=== PATIENT | female | born 1960 | race Caucasian/White ===

== ENCOUNTER 2017-07-14 21:39 | Inpatient (IN) | payer BC, MEDICAID ==
[~2017-07-14] VITALS: Ht 162.6 cm; Wt 103.0 kg
[~2017-07-14 21:39] MED LIST: ACET250T26 PO; ALBU18HF2 INH; DEXA1TAB PO; FURO20TA4 PO; LEVE1000 PO; LEVO100T9 PO; LEVO500T89; LORA1TAB PO; LOVA40TA73 PO; OMEP40CA34 PO; ONDA8TAB6 PO
[2017-07-14] MEDS ORDERED: SODIUM CHLORIDE 0.9% 1,000 ML IV ONE (23:03)
[2017-07-14 23:18] LABS: BG CARBOXYHEMOGLOBIN 0.6 % (0.5-1.5); BG DEOXYHEMOGLOBIN 3.1 % (0.0-5.0); BG FRACTION INSPIRED OXYGEN 21; BG HCO3 ACT 21.1 mmol/L (22.0-26.0); BG METHEMOGLOBIN 0.1 % (0.0-1.5); BG OXYGEN SATURATION 96.9 % (92.0-98.5); BG OXYHEMOGLOBIN 96.2 % (94.0-97.0); BG PCO2 31.7 mmHg (35.0-45.0); BG PH 7.441 (7.350-7.450); BG PO2 89.5 mmHg (75.0-100.0); BG SAMPLE SITE RIGHT RADIAL; BG TOTAL HEMOGLOBIN 15.3 g/dL (12.0-18.0); BG VENT MODE ROOM AIR
[2017-07-14 23:27] LABS: HEMATOCRIT. 42.8 % (36.0-48.0); HEMOGLOBIN. 14.4 g/dL (12.0-16.0); MEAN CORPUSCULAR HEMOGLOBIN 31.3 pg (28.0-32.0); MEAN CORPUSCULAR VOLUME 92.8 fL (81.0-99.0); MEAN PLATELET VOLUME 7.9 fl (7.4-10.4); PLATELET 131 x1000/uL (130-400); RED BLOOD CELL COUNT 4.61 mill/uL (4.2-5.4); RED CELL DISTRIBUTION WIDTH 20.4 % (11.6-14.6)
[2017-07-14 23:31] LABS: CHLORIDE 101 mEq/L (98-107)
[2017-07-14 23:34] LABS: PROTHROMBIN TIME 10.8 sec (9.4-11.6)
[2017-07-14 23:43] LABS: CARBON DIOXIDE 24 mEq/L (21-32)
[2017-07-14 23:56] LABS: PLATELET ESTIMATE NORMAL
[2017-07-15] VITALS (9 sets, daily range): BP systolic 125–154; BP diastolic 73–95
[2017-07-15] MEDS ORDERED: SODIUM CHLORIDE 0.9% 1,000 ML IV ONE (00:06)
[2017-07-15] MEDS ORDERED: PIPERACILLIN/TAZOBACTAM 3.375GM/50ML PREMIX IV NR (00:15)
[2017-07-15] MEDS ORDERED: VANCOMYCIN 1 G PREMIX 200 ML IV SCH (00:15)
[2017-07-15 00:40] LABS: CLARITY URINE CLEAR (CLEAR); COLOR URINE YELLOW (YELLOW); GLUCOSE URINE NEGATIVE (NEGATIVE); KETONES URINE NEGATIVE (NEGATIVE); LEUKOCYTE ESTERASE URINE NEGATIVE (NEGATIVE); NITRITE URINE NEGATIVE (NEGATIVE); OCCULT BLOOD URINE 2+ (NEGATIVE); PH URINE 5.5 (4.5-8.0); PROTEIN URINE 1+ (NEGATIVE); SPECIFIC GRAVITY URINE 1.038 (1.005-1.030)
[2017-07-15] MEDS: ENOXAPARIN 40MG/0.4ML SYR SUBCUT SCH ×2 (09:27→20:47)
[2017-07-15] MEDS ORDERED: HYDROCODONE/ACETAMINOPHEN 5/325MG TABLET PO PRN (10:30)
[2017-07-15] MEDS ORDERED: MORPHINE SULFATE 2 MG/ML CPJ (NOT FOR IM USE) IV PRN (10:30)
[2017-07-15] MEDS ORDERED: LORAZEPAM 2MG/ML CPJ IV PRN (10:30)
[2017-07-15] MEDS ORDERED: LORAZEPAM 1MG TABLET PO PRN (10:30)
[2017-07-15] MEDS ORDERED: ALBUTEROL 6.7GM HFA INHALER INH SCH (10:30)
[2017-07-15] MEDS ORDERED: ENOXAPARIN 40MG/0.4ML SYR SUBCUT SCH (10:30)
[2017-07-15] MEDS ORDERED: ONDANSETRON HCL 4MG/2ML VIAL IV PRN (10:30)
[2017-07-15] MEDS ORDERED: CEFTRIAXONE 1 G PREMIX 50 ML IV SCH (10:30)
[2017-07-15] MEDS ORDERED: ALBUTEROL (0.083%) 2.5MG/3ML NEB HHN PRN (10:45)
[2017-07-15] MEDS: DEXAMETHASONE 1MG TABLET PO SCH ×2 (11:09→17:28)
[2017-07-15] MEDS: THIAMINE HCL 100MG TABLET PO SCH (11:09)
[2017-07-15] MEDS: FOLIC ACID 1MG TABLET PO SCH (11:09)
[2017-07-15] MEDS: LEVOTHYROXINE SODIUM 100MCG TABLET PO SCH (11:09)
[2017-07-15] MEDS: CEFTRIAXONE 1 G PREMIX 50 ML IV SCH (11:29)
[2017-07-15] MEDS: SODIUM CHLORIDE 0.9% 1,000 ML IV SCH ×2 (11:30→19:50)
[2017-07-16] VITALS (12 sets, daily range): BP systolic 111–167; BP diastolic 67–106
[2017-07-16] MEDS: SODIUM CHLORIDE 0.9% 1,000 ML IV SCH (05:33)
[2017-07-16] MEDS: ENOXAPARIN 40MG/0.4ML SYR SUBCUT SCH (09:00)
[2017-07-16] MEDS ORDERED: ENOXAPARIN 40MG/0.4ML SYR SUBCUT SCH (09:00)
[2017-07-16] MEDS: FOLIC ACID 1MG TABLET PO SCH (09:36)
[2017-07-16] MEDS: DEXAMETHASONE 1MG TABLET PO SCH ×2 (09:36→19:01)
[2017-07-16] MEDS: LEVOTHYROXINE SODIUM 100MCG TABLET PO SCH (09:36)
[2017-07-16] MEDS: THIAMINE HCL 100MG TABLET PO SCH (09:36)
[2017-07-16] MEDS: CEFTRIAXONE 1 G PREMIX 50 ML IV SCH (13:24)
[2017-07-16 15:00] LABS: CHLORIDE 108 mEq/L (98-107)
[2017-07-16 15:09] LABS: CARBON DIOXIDE 19 mEq/L (21-32)
[2017-07-16 15:28] LABS: HEMOGLOBIN. 12.6 g/dL (12.0-16.0); MEAN CORPUSCULAR HEMOGLOBIN 30.7 pg (28.0-32.0); PLATELET 82 x1000/uL (130-400); RED BLOOD CELL COUNT 4.09 mill/uL (4.2-5.4); RED CELL DISTRIBUTION WIDTH 20.1 % (11.6-14.6)
[2017-07-16 16:50] LABS: PLATELET ESTIMATE DECREASED
[2017-07-16] MEDS ORDERED: POTASSIUM CHLORIDE 20MEQ TABLET SR PO NR (20:00)
[2017-07-16] MEDS: APIXABAN 5 MG TABLET PO SCH (22:05)
[2017-07-17] VITALS (13 sets, daily range): BP systolic 123–166; BP diastolic 77–102
[2017-07-17 07:28] LABS: HEMOGLOBIN. 11.8 g/dL (12.0-16.0); MEAN CORPUSCULAR HEMOGLOBIN 30.7 pg (28.0-32.0); MEAN CORPUSCULAR VOLUME 93.4 fL (81.0-99.0); MEAN PLATELET VOLUME 8.1 fl (7.4-10.4); PLATELET 73 x1000/uL (130-400); RED BLOOD CELL COUNT 3.86 mill/uL (4.2-5.4)
[2017-07-17 08:03] LABS: CARBON DIOXIDE 20 mEq/L (21-32); CHLORIDE 110 mEq/L (98-107)
[2017-07-17] MEDS: FOLIC ACID 1MG TABLET PO SCH (09:13)
[2017-07-17] MEDS: THIAMINE HCL 100MG TABLET PO SCH (09:13)
[2017-07-17] MEDS: APIXABAN 5 MG TABLET PO SCH ×2 (09:14→16:40)
[2017-07-17] MEDS: DEXAMETHASONE 1MG TABLET PO SCH ×2 (09:14→16:40)
[2017-07-17] MEDS ORDERED: SODIUM PHOS,M-BASIC-D-BASIC 10 MM in DEXT 5% WATER 246.6667 ML IV NR (11:00)
[2017-07-17] MEDS: CEFTRIAXONE 1 G PREMIX 50 ML IV SCH (12:07)
[2017-07-17 13:53] LABS: NUCLEATED RED BLOOD CELLS 1 /100 WBC
[2017-07-17 13:54] LABS: PLATELET ESTIMATE DECREASED
[2017-07-18] VITALS (13 sets, daily range): BP systolic 116–180; BP diastolic 55–90
[2017-07-18] MEDS: APIXABAN 5 MG TABLET PO SCH ×2 (08:44→16:57)
[2017-07-18] MEDS: THIAMINE HCL 100MG TABLET PO SCH (08:45)
[2017-07-18] MEDS: DEXAMETHASONE 1MG TABLET PO SCH ×2 (08:45→16:57)
[2017-07-18] MEDS: FOLIC ACID 1MG TABLET PO SCH (08:45)
[2017-07-18] MEDS: CEFTRIAXONE 1 G PREMIX 50 ML IV SCH (11:32)
== END 2017-07-18 19:10 | disposition home or self-care (01) | DRG 720 ==
LOC: ER 21:39 → 5EST 07-15 01:23 → EDBEDREQ 07-15 01:26 → EDBEDREQTM 07-15 01:26 → ENRESERV 07-15 01:40
PROVIDERS: ADMIT Internal Medicine Nephrology; ATTEND Internal Medicine Nephrology
DX: A41.9 Sepsis, unspecified organism (principal); E43 Unspecified severe protein-calorie malnutrition; D69.6 Thrombocytopenia, unspecified; N39.0 Urinary tract infection, site not specified; E03.9 Hypothyroidism, unspecified; Z92.21 Personal history of antineoplastic chemotherapy; Z92.3 Personal history of irradiation; Z85.841 Personal history of malignant neoplasm of brain; Z79.899 Other long term (current) drug therapy; Z68.39 Body mass index [BMI] 39.0-39.9, adult
CPT/HCPCS: 36415; 36600; 70450; 71010; 80048; 80053; 81001; 82375; 82805; 83605; 83735; 84100; 84443; 85025; 85610; 87040; 87077; 87086; 87186; 93005; 96361; 96365; 96367; 99291; A6261; J0696; J1650; J2543; J3370; J3490; J7030; J7050; J7060; J8540